=== PATIENT | male | born 1975 | race Caucasian/White ===

== ENCOUNTER 2023-07-25 22:53 | Emergency (ER) | payer MEDICAID ==
[~2023-07-25] VITALS: Ht 167.6 cm; Wt 68.5 kg
[2023-07-25 23:00] VITALS: BP 180/110; PULSE 97; RESP 12; TEMP 97.2; O2SAT 97
[2023-07-25 23:38] LABS: BASOPHILS % (AUTO) 0.5 % (0.0-2.0); EOSINOPHILS % (AUTO) 0.4 % (0.0-4.0); HEMOGLOBIN 14.5 g/dL (12.0-18.0); LYMPHOCYTES # (AUTO) 1.6 K/uL (2.0-11.5); LYMPHOCYTES % (AUTO) 23.1 % (20.5-51.1); MEAN CORPUSCULAR HEMOGLOBIN 29 pg (27-31); MEAN CORPUSCULAR HGB CONC 34 g/dL (33-37); MEAN CORPUSCULAR VOLUME 85.5 fL (80-94); MONOCYTES # (AUTO) 0.6 K/uL (0.8-1.0); MONOCYTES % (AUTO) 9.1 % (1.7-9.3); NEUTROPHILS # (AUTO) 4.6 K/uL (1.8-7.7); NEUTROPHILS % (AUTO) 66.9 % (42.2-75.2); PLATELET COUNT (AUTO) 245 K/uL (140-450); RED BLOOD CELL COUNT(AUTO) 5.03 MIL/uL (4.20-6.10); RED CELL DISTRIBUTION WIDTH 15.3 % (11.6-13.7); WHITE BLOOD COUNT (AUTO) 6.9 K/uL (4.8-10.8)
[2023-07-25] MEDS ORDERED: NALOXONE 0.4 MG/ML VIAL IVP ONE (23:45)
[2023-07-25] MEDS ORDERED: NACL 0.9% 1,000 ML IV ONE (23:45)
[2023-07-25 23:51] LABS: ACETAMINOPHEN < 0.5 ug/ml (10-30); ALANINE AMINOTRANSFERASE 48 U/L (12-78); ALBUMIN 4.4 g/dL (3.4-5.0); ALCOHOL, BLOOD < 3 mg/dL (<10); ALKALINE PHOSPHATASE 101 U/L (50-136); ANION GAP 13.1 (8-16); ASPARTATE AMINOTRANSFERASE 31 U/L (15-37); CALCIUM 9.5 mg/dL (8.5-10.1); CHLORIDE 101 mmol/L (98-107); CREATININE 1.2 mg/dL (0.6-1.3); GFR ARICAN-AMERICAN 84 mL/min (>90); GFR NON ARICAN-AMERICAN 69 mL/min (>90); GLUCOSE 115 mg/dL (74-106); POTASSIUM 4.1 mmol/L (3.5-5.1); SODIUM SERUM 137 mmol/L (136-145); TOTAL BILIRUBIN 1.5 mg/dL (0.0-1.0); TOTAL PROTEIN, SERUM 7.7 g/dL (6.4-8.2); UREA NITROGEN, BLOOD 21 mg/dL (7-18)
[2023-07-25 23:52] LABS: SALICYLATE < 2.8 mg/dL (2.8-20.0)
[2023-07-26] VITALS (11 sets, daily range): O2SAT 98–99
[2023-07-26 01:21] LABS: APPEARANCE,URINE CLEAR (CLEAR); BILIRUBIN,URINE NEGATIVE (NEGATIVE); BLOOD, URINE NEGATIVE (NEGATIVE); COLOR,URINE YELLOW (YELLOW); LEUKOCYTE ESTERASE ,URINE NEGATIVE (NEGATIVE); NITRITE, URINE NEGATIVE (NEGATIVE); PROTEIN,URINE 1+ (NEGATIVE); UGLUCOSE NEGATIVE (NEGATIVE); UROBILINOGEN,URINE 0.2 EU/dL (0.2 - 1)
[2023-07-26 01:46] LABS: BACTERIA,URINE FEW /HPF (None Seen); RBC,URINE 0-5 /HPF (0-5); SQUAMOUS EPITHELIAL CELL,UR 0-3 (FEW) /LPF (0-3 (FEW)); WBC,URINE 0-5 /HPF (0-5)
[2023-07-26 01:47] LABS: HYALINE CASTS, URINE 0-10 /LPF (None Seen)
[2023-07-26 02:33] LABS: AMPHETAMINE, URINE POSITIVE ng/ml (NEG <=1000); BARBITURATE, URINE NEGATIVE ng/ml (NEG <=200); BENZODIAZEPINE, URINE NEGATIVE ng/mL (NEG <=200); CANNABINOID, URINE NEGATIVE ng/mL (NEG <=50); COCAINE, URINE NEGATIVE ng/mL (NEG <=300)
[2023-07-26 02:34] LABS: OPIATE, URINE NEGATIVE ng/mL (NEG <=2000); PHENCYCLIDINE SCREEN,URINE NEGATIVE ng/mL (NEG <=25)
[2023-07-26] MEDS ORDERED: LORazepam 1 MG TAB PO ONE (18:25)
[2023-07-26] MEDS: OLANZapine 5 MG ODT PO SCH (21:26)
[2023-07-27] VITALS (9 sets, daily range): O2SAT 98
[2023-07-27] MEDS ORDERED: LORazepam 1 MG TAB PO ONE
[2023-07-27] MEDS ORDERED: LORazepam 2 MG/ML VIAL IM/IVP STA (00:54)
[2023-07-27] MEDS ORDERED: diphenhydrAMINE 50 MG/ML VIAL IM ONE (00:55)
[2023-07-27] MEDS ORDERED: HALOPERIDOL IM 5 MG/ML VIAL IM ONE (00:55)
[2023-07-27] MEDS ORDERED: LORazepam 2 MG/ML VIAL IM ONE (01:45)
[2023-07-28] MEDS ORDERED: OLANZapine 5 MG ODT PO SCH (01:00)
[2023-07-28 10:54] VITALS: BP 116/72; PULSE 78; RESP 18; TEMP 97.2; O2SAT 96
== END 2023-07-28 10:54 | disposition home or self-care (01) ==
LOC: MED 22:53
DX: F15.10 Other stimulant abuse, uncomplicated (principal); R45.851 Suicidal ideations; I10 Essential (primary) hypertension; Z88.5 Allergy status to narcotic agent
CPT/HCPCS: 36415; 80053; 80305; 81001; 85025; 93005; 96361; 96374; 99285; G0480; G0482; J1200; J1630; J2060; J2310; J7030